=== PATIENT | male | born 1990 | race Caucasian/White ===

== ENCOUNTER 2018-12-25 01:09 | Emergency (ER) | payer MEDICAID, OTHER ==
[~2018-12-25] VITALS: Ht 180.3 cm; Wt 123.6 kg
[2018-12-25 01:18] VITALS: Ht 180.3 cm; Wt 123.6 kg
[2018-12-25] MEDS ORDERED: morphine 4 MG/ML VIAL IM STA (03:29)
[2018-12-25] MEDS ORDERED: DIAZEPAM 5 MG/ML SYG IM ONE (03:30)
[2018-12-25] MEDS ORDERED: predniSONE 20 MG TAB PO ONE (03:30)
[2018-12-25] MEDS ORDERED: NAPR-985 PO (05:11)
[2018-12-25] MEDS ORDERED: CYCL10TA7 PO (05:11)
[2018-12-25] MEDS ORDERED: PRED20TA PO (05:11)
[2018-12-25 05:49] VITALS: BP 178/107; PULSE 70; RESP 17
--- NOTE | 2018-12-26 11:28 | ERD ---
ER Documentation Chief Complaint Chief Complaint lower back pain radiating to left leg x 2 weeks. denies trauma HPI This is a 28-year-old male patient who presents to emergency room with complaint of pain in right hamstring that started approximately 4 days ago. 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 Patient denies any trauma, no paresthesias, no weakness or discoordination, no difficulty with urination or bowel movements. No chronic medical problems. No hormone therapy, no recent period of immobility, non-smoker. ROS All systems reviewed and are negative except as per history of present illness. Medications Home Meds Active Scripts Prednisone* (Prednisone*) 20 Mg Tab, 40 MG PO DAILY for 4 Days, TAB Prov:JOY GUERRA NP 12/25/18 Naproxen* (Naprosyn*) 500 Mg Tablet, 500 MG PO BID PRN for PAIN AND/OR INFLAMMATION for 15 Days, #30 TAB Prov:JOY GUERRA NP 12/25/18 Cyclobenzaprine Hcl* (Cyclobenzaprine Hcl*) 10 Mg Tablet, 10 MG PO TID for MUSCLE SPASM for 5 Days, #15 TAB Prov:JOY GUERRA NP 12/25/18 Allergies Allergies: Coded Allergies: No Known Drug Allergies (Verified Allergy, Unknown, 12/25/18) PMhx/Soc Medical and Surgical Hx: pt denies Medical Hx, pt denies Surgical Hx Hx Alcohol Use: No Hx Substance Use: No Hx Tobacco Use: No Smoking Status: Never smoker FmHx Family History: No diabetes, No coronary disease, No other Physical Exam Vitals Vital Signs Date Temp Pulse Resp B/P (MAP) Pulse Ox O2 O2 Flow FiO2 Time Delivery Rate 12/25/18 98.0 70 17 178/107 97 Room Air 05:49 (130) 12/25/18 99.4 94 18 180/94 99 01:18 (122) Physical Exam Const: No acute distress Head: Atraumatic Eyes: Normal Conjunctiva, PERRL ENT: Normal External Ears, Nose and Mouth. Neck: Full range of motion. No meningismus. Resp: Clear to auscultation bilaterally Cardio: Regular rate and rhythm, no murmurs Abd: Soft, non tender, non distended. Normal bowel sounds Back Exam: Skin: No bruising or rash, no swelling, redness, bruising to low back, buttocks, thigh Compartments: Soft Motor: Normal flexion and extension of bilateral hip/knee/ankle/foot. Straight leg test: R (neg), Left: able to lift leg 45 degrees before cramping sensation in hamstring muscle, pt denies paresthesia or pain beyond hip or below knee (neg sciatica), no tremors with stretch, R/L hip FROM Sensation: Intact to light touch throughout Bones: No midline TTP Skin: No petechiae or rashes Back: No midline or flank tenderness Ext: No cyanosis, or edema Neur: Awake and alert, pt is ambulatory, prefers position of sitting with left leg tucked under bottom and right leg resting on floor Psych: Normal Mood and Affect, restless due to pain Results 24 hrs Current Medications Medications Dose Sig/Toñito Start Time Status Last (Trade) Ordered Route PRN Stop Time Admin Dose Reason Admin Diazepam 5 mg ONCE ONCE 12/25/18 DC 12/25/18 (Valium) IM 03:30 12/25/18 03:49 03:32 Morphine 4 mg ONCE STAT 12/25/18 DC 12/25/18 Sulfate IM 03:29 12/25/18 03:48 (morphine) 03:32 Prednisone 60 mg ONCE ONCE 12/25/18 DC 12/25/18 (Prednisone) PO 03:30 12/25/18 03:48 03:32 Procedures/MDM This is a 28-year-old male patient who presents to emergency room with complaint of pain in right hamstring that started approximately 4 days ago. ED COURSE: The patient was stable throughout ED course. DIAGNOSTIC IMAGING: Read by radiologist. Not indicated at this time. MEDICATIONS GIVEN: Valium, morphine, prednisone Patient tolerated medication well with no adverse reactions. Patient reported improvement in pain. MDM: Patient's extremity symptoms have stabilized while he has been evaluated in the department and is appropriate for outpatient follow up. No evidence of compartment syndrome, neurologic injury, vascular injury, open joint, open fracture, tendon laceration, or DVT. Long discussion with patient regarding care and treatment of muscle spasm including use of NSAIDs, heat, icy hot, stretching, body mechanics at work. Patient has been instructed for close follow-up with PMD for reevaluation as well as possible referral for physical therapy. Patient instructed on signs and symptoms of red flags of worsening of condition and when to return to the emergency room. Patient has been provided with work note. DISPOSITION: The patient has been discharge home to follow-up with community physician. Departure Diagnosis: Primary Impression: Hamstring sprain Encounter type: initial encounter Laterality: right Qualified Codes: S76.391A - Other specified injury of muscle, fascia and tendon of the posterior muscle group at thigh level, right thigh, initial encounter Additional Impression: Back pain Back pain location: low back pain Chronicity: acute Back pain laterality: right Sciatica presence: without sciatica Qualified Codes: M54.5 - Low back pain Condition: Stable Patient Instructions: Seated Hamstring Stretch, Back Pain W/ Sciatica, Muscle Strain, Extremity Referrals: [facility] YOU HAVE RECEIVED A MEDICAL SCREENING EXAM AND THE RESULTS INDICATE THAT YOU DO NOT HAVE A CONDITION THAT REQUIRES URGENT TREATMENT IN THE EMERGENCY DEPARTMENT. FURTHER EVALUATION AND TREATMENT OF YOUR CONDITION CAN WAIT UNTIL YOU ARE SEEN IN YOUR DOCTORS OFFICE WITHIN THE NEXT 1-2 DAYS. IT IS YOUR RESPONSIBILITY TO MAKE AN APPOINTMENT FOR FOLOW-UP CARE. IF YOU HAVE A PRIMARY DOCTOR --you should call your primary doctor and schedule an appointment IF YOU DO NOT HAVE A PRIMARY DOCTOR YOU CAN CALL OUR PHYSICIAN REFERRAL HOTLINE AT IF YOU CAN NOT AFFORD TO SEE A PHYSICIAN YOU CAN CHOSE FROM THE FOLLOWING [facility] [address] [facility] [address] [facility] [facility] [address] [facility] [facility] [address] [facility]. [facility] [address] [facility]. [facility]. [address] Additional Instructions: Thank you very much for allowing us to participate in your care. Your health and safety is our top priority at [facility]. Call your primary care doctor TOMORROW for an appointment during the next 2-4 days and bring all the information and medications prescribed. Have prescriptions filled and follow precisely the directions on the label. If the symptoms get worse and your provider is unavailable, return to the Emergency Department immediately. Use moist heat 20 to 30 minutes 2-3 times per day Use Flexeril as needed for muscle spasm Use Naprosyn as needed for discomfort Perform stretching exercises 1-2 times per day Follow-up with primary care provider, you may need referral for physical therapy JOY GUERRA NP Dec 26, 2018 11:27
== END 2018-12-25 05:49 | disposition home or self-care (01) ==
LOC: FTE 01:09
DX: S76.391A Other specified injury of muscle, fascia and tendon of the posterior muscle group at thigh level, right thigh, initial encounter (principal); S30.0XXA Contusion of lower back and pelvis, initial encounter; X58.XXXA Exposure to other specified factors, initial encounter; Y92.9 Unspecified place or not applicable
CPT/HCPCS: 96372; J2270; J3360; J7512; Z7502